=== PATIENT | female | born 1945 | race Hispanic/Latino ===

== ENCOUNTER 2021-01-20 12:10 | Emergency (ER) | payer OTHER ==
--- OUTSIDE RECORDS SUMMARY | 2021-01-20 12:13 | XMS REPORT | Continuity of Care Document ---
:1945 Author Organization [facility] t Address [address] [place] [address] Dr. Baez. [address] [place] [address] Care Team Providers Name Role Phone Myke RAMAN Attending Clinician Problems This patient has no known problems. Allergies, Adverse Reactions, Alerts This patient has no known allergies or adverse reactions. Medications This patient has no known medications. Procedures This patient has no known procedures. Encounters Start End Encounter Admission Attending Care Care Encounter Source Date/Time Date/Time Type Type Clinicians Facility Department ID 2021-01-17 2021-01-17 Telephone ROGER Stringer [id number] 00:00:00 00:00:00 [facility] [id number] Surgical [id number] [facility] [id number] [address] [place] Results This patient has no known results.
[2021-01-20 13:21] LABS: Absolute Lymphocytes (CBC) 0.8 K/uL (0.7-4.9); Basophils % 0.5 % (0-1.3); MPV 9.1 fL (7.6-11.3)
[2021-01-20 13:36] LABS: Potassium 3.9 mmol/L (3.5-5.1)
--- NOTE | 2021-01-20 14:00 | RAD REPORT ---
EXAM DESCRIPTION: RAD - Chest Single View - 01/20/2021 1:52 pm CLINICAL HISTORY: COUGH, epigastric pain and fever COMPARISON: November 2016 TECHNIQUE: AP portable chest image was obtained 01/20/2021 1:52 pm . FINDINGS: Fibrotic lung pattern is present accentuated by shallow inspiration. Parenchymal findings are not substantially different from comparison. Rotation, portable technique, supine positioning and shallow inspiration all contribute to accentuated lung parenchyma and cardiomediastinal silhouette. No measurable pleural effusion and no pneumothorax. No acute bony abnormality seen. No acute aortic f indings suspected. IMPRESSION: When adjusting for positioning and technique differences, chest is not substantially dif ferent from comparison.
--- NOTE | 2021-01-20 15:33 | EDPHYS ---
Physician Documentation [facility] Name: Suzanne Sneed Age: 75 yrs Sex: Female : 1945 Arrival Date: 01/20/2021 Time: 12:15 Bed 17 Private MD: Wander Dutta ED Physician Charly Bosch HPI: 01/20 13:02 This 75 yrs old Female presents to ER via Ambulatory with complaints of COVID+.pm1 20:15 The patient presents with abdominal pain in the epigastric area. Onset: The pm1 symptoms/episode began/occurred 10 day(s) ago. The symptoms do not radiate. Associated signs and symptoms: Pertinent positives: fever, nausea, Pertinent negatives: chest pain, diarrhea, dysuria, shortness of breath, vomiting. The symptoms are described as crampy. Modifying factors: The symptoms are alleviated by nothing, the symptoms are aggravated by nothing. Severity of pain: in the emergency department the pain has resolved. diagnosed with covid last Friday. Patient concerned that she her electrolytes are off due to her decreased appetite and change in taste of food. Patient denies shortness of breath, but is concerned because in the past rg she has had a URI she was given abx prescriptions by her PCP and they have improved her symptoms. Historical: - Allergies: 12:31 Sulfa (Sulfonamide Antibiotics); NAUSEA; hb - Immunization history:: Adult Immunizations. - Social history:: Smoking status: Patient denies any tobacco usage or history of. ROS: 20:15 Eyes: Negative for injury, pain, redness, and discharge, ENT: Negative for injury, pm1 pain, and discharge, Neck: Negative for injury, pain, and swelling. 20:15 Cardiovascular: Negative for chest pain, palpitations, and edema, Respiratory: Negative for shortness of breath, cough, wheezing, and pleuritic chest pain. 20:15 Back: Negative for injury and pain, : Negative for injury, bleeding, discharge, and swelling, MS/Extremity: Negative for injury and deformity, Skin: Negative for injury, rash, and discoloration, Neuro: Negative for headache, weakness, numbness, tingling, and seizure. 20:15 Constitutional: Positive for fatigue, fever, poor PO intake. 20:15 Abdomen/GI: Positive for abdominal pain, nausea, Negative for vomiting, diarrhea, constipation. Exam: 20:15 Constitutional: This is a well developed, well nourished patient who is awake, alert, pm1 and in no acute distress. Head/Face: Normocephalic, atraumatic. 20:15 Back: No spinal tenderness. No costovertebral tenderness. Full range of motion. Skin: Warm, dry with normal turgor. Normal color with no rashes, no lesions, and no evidence of cellulitis. MS/ Extremity: Pulses equal, no cyanosis. Neurovascular intact. Full, normal range of motion. 20:15 Cardiovascular: Exam negative for acute changes, Rate: normal, Rhythm: regular, Pulses: no pulse deficits are appreciated. 20:15 Respiratory: Exam negative for acute changes, respiratory distress, shortness of breath, Breath sounds: are clear throughout. 20:15 Abdomen/GI: Inspection: abdomen appears normal, Palpation: abdomen is soft and non-tender, in all quadrants. 20:15 Neuro: Exam negative for acute changes, Orientation: is normal, Mentation: is normal, Motor: is normal, moves all fours. Vital Signs: 12:29 BP 152 / 72; Pulse 102; Resp 20; Temp 99; Pulse Ox 95% on R/A; Weight 107.05 kg; Height hb 5 ft. 1 in. (154.94 cm); Pain 0/10; 12:58 BP 130 / 66; Pulse 86; Resp 18; Pulse Ox 96% on R/A; bw 13:34 BP 125 / 64; Pulse 81; Resp 18; Pulse Ox 96% on R/A; bw 14:56 BP 131 / 65; Pulse 73; Resp 18; Pulse Ox 95% on R/A; bw 12:29 Body Mass Index 44.59 (107.05 kg, 154.94 cm) hb MDM: 12:35 Patient medically screened. pm1 15:32 Data reviewed: vital signs. Data interpreted: Pulse oximetry: on room air is 95 %. pm1 Interpretation: normal. Counseling: I had a detailed discussion with the patient and/or guardian regarding: the historical points, exam findings, and any diagnostic results supporting the discharge/admit diagnosis, lab results, radiology results, the need for outpatient follow up, to return to the emergency department if symptoms worsen or persist or if there are any questions or concerns that arise at home. 01/20 12:42 Order name: CBC with Diff pm1 01/20 12:42 Order name: BMP pm1 01/20 12:42 Order name: IV Saline Lock; Complete Time: 13:15 pm1 01/20 12:42 Order name: Chest Single View XRAY; Complete Time: 14:16 pm1 01/20 12:43 Order name: CBC with Automated Diff; Complete Time: 14:16 EDMS 01/20 12:43 Order name: Basic Metabolic Panel; Complete Time: 14:16 EDMS Administered Medications: No medications were administered Disposition: 16:41 Co-signature as Attending Physician, Charly Bosch MD. rn Disposition: 01/20/21 15:32 Discharged to Home. Impression: Coronavirus infection, unspecified. - Condition is Stable. - Discharge Instructions: COVID-19. - Medication Reconciliation Form, Thank You Letter, Antibiotic Education, Prescription Opioid Use form. - Follow up: Emergency Department; When: As needed; Reason: Worsening of condition. Follow up: Private Physician; When: 2 - 3 days; Reason: Recheck today's complaints, Continuance of care, Re-evaluation by your physician. - Problem is new. - Symptoms have improved. Signatures: Dispatcher [employer] EDMS Charly Bosch MD MD rn Marinas, Patrick, OPAL A P SUPERVISOR pm1 Kylee Ryan RN RN hb Webb, Bethany, RN RN bw Corrections: (The following items were deleted from the chart) 16:11 15:32 01/20/2021 15:32 Discharged to Home. Impression: Coronavirus infection, bw unspecified. Condition is Stable. Forms are Medication Reconciliation Form, Thank You Letter, Antibiotic Education, Prescription Opioid Use. Follow up: Emergency Department; When: As needed; Reason: Worsening of condition. Follow up: Private Physician; When: 2 - 3 days; Reason: Recheck today's complaints, Continuance of care, Re-evaluation by your physician. Problem is new. Symptoms have improved. pm1 20:14 13:02 The patient has shortness of breath at rest, pm1 pm1 20:14 13:02 Onset: The symptoms/episode began/occurred yesterday, pm1 pm1 20:14 13:02 Duration: The symptoms are continuous, pm1 pm1 :14 13:02 The patient's shortness of breath is aggravated by light activity, is alleviated pm1 by nothing, pm1 20:14 13:02 Associated signs and symptoms: Pertinent positives: productive cough, fever, pm1 fatigue, nausea, epigastric paim, Pertinent negatives: chest pain, vomiting, diarrhea, pm1 20:14 13:02 Severity of symptoms: in the emergency department the symptoms shortness of pm1 breath worse, Pain is currently a 0 / 10 pm1 20:14 13:02 The patient has not experienced similar symptoms in the past, pm1 pm1 20:14 13:02 diagnosis of covid yesterday, pm1 pm1 20:14 13:02 Constitutional: Positive for body aches, fever, Negative for poor PO intake, pm1 pm1 20:14 13:02 Eyes: Negative for injury, pain, redness, and discharge, ENT: Negative for pm1 injury, pain, and discharge, Neck: Negative for injury, pain, and swelling, Cardiovascular: Negative for chest pain, palpitations, and edema, pm1 20:14 13:02 Abdomen/GI: Positive for abdominal pain, nausea, Negative for vomiting, diarrhea, pm1 constipation, pm1 20:14 13:02 Back: Negative for injury and pain, : Negative for injury, bleeding, discharge, pm1 and swelling, MS/Extremity: Negative for injury and deformity, Skin: Negative for injury, rash, and discoloration, pm1 20:14 13:02 Respiratory: Positive for cough, shortness of breath, pm1 pm1 20:14 13:02 Neuro: Negative for headache, weakness, numbness, tingling, and seizure, pm1 pm1 20:14 13:02 Constitutional: This is a well developed, well nourished patient who is awake, pm1 alert, and in no acute distress. Head/Face: Normocephalic, atraumatic. pm1 20:14 13:02 Cardiovascular: Exam negative for acute changes, Rate: normal, Rhythm: regular, pm1 Pulses: no pulse deficits are appreciated, Edema: is not appreciated, pm1 20:14 13:02 Respiratory: the patient does not display signs of respiratory distress, Breath pm1 sounds: are clear throughout, pm1 20:14 13:02 Abdomen/GI: Inspection: abdomen appears normal, Palpation: abdomen is soft and pm1 non-tender, in all quadrants, pm1 20:14 13:02 Skin: Warm, dry with normal turgor. Normal color with no rashes, no lesions, and pm1 no evidence of cellulitis. MS/ Extremity: Pulses equal, no cyanosis. Neurovascular intact. Full, normal range of motion. Neuro: Awake and alert, GCS 15, oriented to person, place, time, and situation. Cranial nerves II-XII grossly intact. Motor strength 5/5 in all extremities. Sensory grossly intact. Cerebellar exam normal. Normal gait. pm1
--- NOTE | 2021-01-20 15:33 | ER ---
Nurse's Notes [facility] [place] Name: Suzanne Sneed Age: 75 yrs Sex: Female : 1945 Arrival Date: 01/20/2021 Time: 12:15 Bed 17 Private MD: Wander Dutta Diagnosis: Coronavirus infection, unspecified Presentation: 01/20 12:29 Chief complaint: Intermittent epigastric pain and fever x 10 days, SOB, fatigue, and hb nausea x 1 week. Tested COVID + last Friday at [facility]. Coronavirus screen: Client presents with at least one sign or symptom that may indicate coronavirus-19. Standard/surgical mask placed on the client. Provider contacted for isolation considerations. Client reports previous positive COVID test result. Date of collection: January 12, 2021. Ebola Screen: No symptoms or risks identified at this time. Initial Sepsis Screen: Does the patient meet any 2 criteria? HR > 90 bpm. No. Patient's initial sepsis screen is negative. Does the patient have a suspected source of infection?. Risk Assessment: Do you want to hurt yourself or someone else? Patient reports no desire to harm self or others. Onset of symptoms was January 10, 2021. 12:29 Method Of Arrival: Ambulatory hb 12:29 Acuity: DREAD 3 hb Triage Assessment: 15:56 General: Appears in no apparent distress. Behavior is calm, cooperative, appropriate bw for age. Historical: - Allergies: 12:31 Sulfa (Sulfonamide Antibiotics); NAUSEA; hb - Immunization history:: Adult Immunizations. - Social history:: Smoking status: Patient denies any tobacco usage or history of. Screenin:58 Abuse screen: Denies threats or abuse. Nutritional screening: No deficits noted. bw Tuberculosis screening: No symptoms or risk factors identified. Fall Risk None identified. Assessment: 12:58 Pain: Complains of pain in on inspiration. Neuro: No deficits noted. Cardiovascular: No bw deficits noted. Respiratory: No deficits noted. Respiratory: Reports shortness of breath cough that is. GI: No deficits noted. : No deficits noted. EENT: No deficits noted. Derm: No deficits noted. 13:34 Reassessment: Patient appears in no apparent distress at this time. Patient and/or bw family updated on plan of care and expected duration. Pain level reassessed. Patient is alert, oriented x 3, equal unlabored respirations, skin warm/dry/pink. 14:56 Reassessment: Patient appears in no apparent distress at this time. Patient and/or bw family updated on plan of care and expected duration. Pain level reassessed. Patient is alert, oriented x 3, equal unlabored respirations, skin warm/dry/pink. 15:55 Reassessment: Patient appears in no apparent distress at this time. Patient and/or bw family updated on plan of care and expected duration. Pain level reassessed. Patient is alert, oriented x 3, equal unlabored respirations, skin warm/dry/pink. Vital Signs: 12:29 BP 152 / 72; Pulse 102; Resp 20; Temp 99; Pulse Ox 95% on R/A; Weight 107.05 kg; Height hb 5 ft. 1 in. (154.94 cm); Pain 0/10; 12:58 BP 130 / 66; Pulse 86; Resp 18; Pulse Ox 96% on R/A; bw 13:34 BP 125 / 64; Pulse 81; Resp 18; Pulse Ox 96% on R/A; bw 14:56 BP 131 / 65; Pulse 73; Resp 18; Pulse Ox 95% on R/A; bw 12:29 Body Mass Index 44.59 (107.05 kg, 154.94 cm) hb ED Course: 12:15 Patient arrived in ED. mr 12:15 Wander Dutta MD is Private Physician. mr 12:31 Triage completed. hb 12:31 Arm band placed on Patient placed in an exam room, on a stretcher. ll1 12:32 Shadi Reid NP is PHCP. pm1 12:32 Charly Bosch MD is Attending Physician. pm1 12:57 Radha Ponce, BRIAN is Primary Nurse. bw 12:58 Patient has correct armband on for positive identification. Bed in low position. Call bw light in reach. Side rails up X 1. Pulse ox on. NIBP on. Warm blanket given. 12:58 No provider procedures requiring assistance completed. bw 13:15 BMP Sent. bw 13:15 CBC with Diff Sent. bw 13:15 Inserted saline lock: 20 gauge in right antecubital area, using aseptic technique. bw Blood collected. 13:52 Chest Single View XRAY In Process Unspecified. EDMS 14:56 IV discontinued. Administered Medications: No medications were administered Outcome: 15:32 Discharge ordered by . pm1 15:55 Discharged to home ambulatory. 15:55 Condition: stable 15:55 Discharge instructions given to patient. 16:11 Patient left the ED. Signatures: Dispatcher [employer] EDKS Elda Lerma Shadi, PIPELINE SUPERINTENDENT DIVISION PIPELINE SUPERINTENDENT DIVISION pm1 Kylee Ryan RN RN Radha Draper RN RN 1 Radha Ponce RN RN
[2021-01-20 20:25] VITALS: TEMP 99
[2021-01-20 20:29] VITALS: BP 131/65; O2SAT 95
== END 2021-01-20 16:11 | disposition home or self-care (01) ==
LOC: ER 12:10
DX: U07.1 COVID-19 (principal)
CPT/HCPCS: 36415; 71045; 80048; 85025; 99284

== ENCOUNTER 2022-02-24 15:04 | Emergency (ER) | payer OTHER ==
--- OUTSIDE RECORDS SUMMARY | 2022-02-24 15:06 | XMS REPORT | Continuity of Care Document ---
:1945 Author Organization [facility] t Address [address] [place] [address] Care Team Providers Name Role Phone Lab, Av Pob I Attending Clinician Unavailable Anene WEIGHT ANALYST Attending Clinician ANENE Attending Clinician Unavailable Payers Payer Name Policy Type Policy Number Effective Date Expiration Date S ource Problems This patient has no known problems. Allergies, Adverse Reactions, Alerts Allergy Allergy Status Severity Reaction(s) Onset Inactive Treating Comm ents Source Name Type Date Date Clinician Sulfa Propensi Active Nausea [facility] (Sulfona ty to and/or 8-23 ity of mide adverse Vomiting 00:00: [place] Antibiot reaction 00 Medica l ics) s Branch SULFA Drug Active High N/V 0 [facility] (SULFONA Class 8-23 ity of MIDE 00:00: [place] ANTIBIOT 00 Medical ICS) Branch Social History Social Habit Start Date Stop Date Quantity Comments Source Exposure to Yes [facility] SARS-CoV-2 (event) Medica l Branch Sex Ass[birth year] [facility] 00:00:00 00:00:00 Medical Branch Smoking Status Start Date Stop Date Source Unknown if ever smoked [facility] Medical Branch Medications Ordered Filled Start Stop Current Ordering Indication Dosage Frequency Signature Comments Components Source Medication Medication Date Date Medication? Clinician (SIG) Name Name amlodipine- Yes 1{capsu Take 1 U nivers benazepril 8-10 le} capsule by ity of (LOTREL) 21:08: mouth [place] 10-20 mg 36 daily. Medical per capsule Branch amlodipine- Yes 1{capsu Take 1 U nivers benazepril 8-10 le} capsule by ity of (LOTREL) 21:08: mouth [place] 10-20 mg 36 daily. Medical per capsule Branch amlodipine- Yes 1{capsu Take 1 U nivers benazepril 8-10 le} capsule by ity of (LOTREL) 21:08: mouth [place] 10-20 mg 36 daily. Medical per capsule Branch amlodipine- Yes 1{capsu Take 1 U nivers benazepril 8-10 le} capsule by ity of (LOTREL) 21:08: mouth [place] 10-20 mg 36 daily. Medical per capsule Branch amlodipine- Yes 1{capsu Take 1 U nivers benazepril 8-10 le} capsule by ity of (LOTREL) 21:08: mouth [place] 10-20 mg 36 daily. Medical per capsule Branch amlodipine- Yes 1{capsu Take 1 U nivers benazepril 8-10 le} capsule by ity of (LOTREL) 21:08: mouth [place] 10-20 mg 36 daily. Medical per capsule Branch amlodipine- Yes 1{capsu Take 1 U nivers benazepril 8-10 le} capsule by ity of (LOTREL) 21:08: mouth [place] 10-20 mg 36 daily. Medical per capsule Branch amlodipine- Yes 1{capsu Take 1 U nivers benazepril 8-10 le} capsule by ity of (LOTREL) 21:08: mouth [place] 10-20 mg 36 daily. Medical per capsule Branch amlodipine- Yes 1{capsu Take 1 U nivers benazepril 8-10 le} capsule by ity of (LOTREL) 21:08: mouth [place] 10-20 mg 36 daily. Medical per capsule Branch amlodipine- Yes 1{capsu Take 1 U nivers benazepril 8-10 le} capsule by ity of (LOTREL) 21:08: mouth [place] 10-20 mg 36 daily. Medical per capsule Branch cloniDINE Yes .1mg Take 0.1 Univ ers 0.1 mg 7-21 mg by ity of tablet 00:00: mouth [place] 00 daily. Medical Branch ALPRAZolam Yes 1mg Take 1 mg Un car[place] 2 mg tablet 7-21 by mouth ity of 00:00: at [place] bedtime. Medical Branch cloniDINE 2017-0 Yes .1mg Take 0.1 Univ ers 0.1 mg 7-21 mg by ity of tablet 00:00: mouth daily. Medical Branch ALPRAZolam 2017-0 Yes 1mg Take 1 mg Un car[place] 2 mg tablet 7-21 by mouth ity of 00:00: at [place] bedtime. Medical Branch cloniDINE 2017-0 Yes .1mg Take 0.1 Univ ers 0.1 mg 7-21 mg by ity of tablet 00:00: mouth daily. Medical Branch ALPRAZolam 2017-0 Yes 1mg Take 1 mg Un car[place] 2 mg tablet 7-21 by mouth ity of 00:00: at [place] bedtime. Medical Branch cloniDINE 2017-0 Yes .1mg Take 0.1 Univ ers 0.1 mg 7-21 mg by ity of tablet 00:00: mouth daily. Medical Branch ALPRAZolam 2017-0 Yes 1mg Take 1 mg Un [place] 2 mg tablet 7-21 by mouth ity of 00:00: at [place] bedtime. Medical Branch cloniDINE 2017-0 Yes .1mg Take 0.1 Univ ers 0.1 mg 7-21 mg by ity of tablet 00:00: mouth daily. Medical Branch ALPRAZolam 2016-0 Yes 1mg Take 1 mg Un [place] 2 mg tablet 7-21 by mouth ity of 00:00: at [place] bedtime. Medical Branch cloniDINE 2017-0 Yes .1mg Take 0.1 Univ ers 0.1 mg 7-21 mg by ity of tablet 00:00: mouth daily. Medical Branch ALPRAZolam 2017-0 Yes 1mg Take 1 mg Un [place] 2 mg tablet 7-21 by mouth ity of 00:00: at [place] bedtime. Medical Branch cloniDINE 2017-0 Yes .1mg Take 0.1 Univ ers 0.1 mg 7-21 mg by ity of tablet 00:00: mouth daily. Medical Branch ALPRAZolam 2017-0 Yes 1mg Take 1 mg Un [place] 2 mg tablet 7-21 by mouth ity of 00:00: at [place] bedtime. Medical Branch cloniDINE 2017-0 Yes .1mg Take 0.1 Univ ers 0.1 mg 7-21 mg by ity of tablet 00:00: mouth [place] 00 daily. [facility] Branch ALPRAZolam Yes 1mg Take 1 mg Un carl[place] 2 mg tablet 7-21 by mouth ity of 00:00: at [place] [address] bedtime. Medical Branch cloniDINE Yes .1mg Take 0.1 Univ ers 0.1 mg 7-21 mg by ity of tablet 00:00: mouth [place] 00 daily. [facility] Branch ALPRAZolam Yes 1mg Take 1 mg Un car[place] 2 mg tablet 7-21 by mouth ity of 00:00: at [place] 00 bedtime. [facility] Branch cloniDINE Yes .1mg Take 0.1 Univ ers 0.1 mg 7-21 mg by ity of tablet 00:00: mouth [place] 00 daily. [facility] Branch ALPRAZolam Yes 1mg Take 1 mg Un car[place] 2 mg tablet 7-21 by mouth ity of 00:00: at [place] [address] bedtime. Medical Branch Procedures This patient has no known procedures. Encounters Start End Encounter Admission Attending Care Care Encounter Source Date/Time Date/Time Type Type Clinicians Facility Department ID 2021-02-12 2021-02-12 Laboratory Lab, Adc Fam Pob I [facility] [id number]. [id number] Univers 10:58:06 11:18:06 Only Suzanne Stringerthia [employer] [id number] ity of [place] [id number] Renzo as Professio [phone] [address] Office [address] One 2021-02-12 2021-02-12 Outpatient R [facility] [id number] Univers 11:00:00 11:00:00 [id number] ity [facility] 2021-02-12 2021-02-12 [facility] [id number] Univers 11:00:00 11:00:00 CHIDI ity [facility] 2021-02-01 2021-02-01 Telephone Chica [facility] [id number] Univers 00:00:00 00:00:00 [employer] [id number] it y of [place] [id number] Renzo as Professio [phone] Ca dical nal 044 [facility] One 2021-01-30 2021-01-30 Laboratory Lab, [facility] Fam Pob I [facility] 1.2. [id number] [id number] Univers 09:57:45 10:17:45 Only Suzanne Stringerthia Health [id number] ity of [place] [id number] Renzo as Professio [id number] [address] One 2021-01-30 2021-01-30 Outpatient R [facility] [id number] Univers 10:00:00 10:00:00 [id number] ity [facility] 2021-01-30 2021-01-30 Outpatient R [facility] [id number] Univers 10:00:00 10:00:00 CHIDI ity [facility] 2021-01-17 2021-01-17 [facility] [id number] 00:00:00 00:00:00 Ch[facility] [id number] Surgical [id number] Specialti [id number] [address] 2021-01-17 2021-01-17 [facility] [id number] Univers 00:00:00 00:00:00 Chidi [facility] [id number] it y of Surgical [id number] Renzo as Specialti [id number] [facility] [address] [facility] 2021-01-15 2021-01-15 [facility] [id number] Univers 00:00:00 00:00:00 Chidi [facility] [id number] it y of [place] [id number] Renzo as Professio [phone] Ca dicct nal [address] [place] [address] One 2021-01-13 2021-01-13 Telephone Lab, [facility] [id number] Univers 00:00:00 00:00:00 Fam Pob I Health [id number] ity of [place] [id number] Renzo as Professio [phone] Ca dical nal [address] [place] [address] One 2021-01-12 2021-01-12 Laboratory Lab, Adc Fam Pob I [facility] 1.2. 840.114 [id number] Univers 11:13:13 11:33:13 Only Chidi Strigner [facility] [id number] ity of [place] [id number] Renzo as Professio [phone] Ca dicct nal [address] [place] [address] One 2021-01-12 2021-01-12 Outpatient R [facility] [id number] Univers 11:20:00 11:20:00 [id number] [facility] 2021-01-12 2021-01-12 Outpatient R CHICA [facility] [id number] Univers 11:20:00 11:20:00 [facility] Results This patient has no known results.
[2022-02-24] MEDS ORDERED: METOCLOPRAMIDE 10 MG/2mL INJ ONE (16:23)
[2022-02-24] MEDS ORDERED: ACETAMINOPHEN 325 MG TABLET ONE (16:23)
[2022-02-24] MEDS ORDERED: NA CHLORIDE 0.9% 500 ML ONE (16:24)
--- NOTE | 2022-02-24 16:39 | RAD REPORT ---
EXAM DESCRIPTION: CT - Head Brain Wo Cont - 02/24/2022 4:27 pm CLINICAL HISTORY: Dizziness COMPARISON: 2017 TECHNIQUE: Computed axial tomography of the head was obtained. IV contrast was not requested. All CT scans are performed using dose optimization technique as appropriate and may include automated exposure control or mA/KV adjustment according to patient size. FINDINGS: An intracranial bleed is not seen . The ventricles are normal in caliber. No extra-axial fluid collection is noted. Mild low-density areas within periventricular, deep and subcortical white matter likely represent isc hemic changes secondary to small vessel disease. Vascular calcifications Fluid within the sinuses/ mastoids is not seen. IMPRESSION: No acute intracranial abnormality is seen. If patient's symptoms persist MRI of the bra in would be recommended.
[2022-02-24 17:12] LABS: Urine Blood Negative (Negative); Urine Glucose Negative (Negative); Urine Protein Negative (Negative)
--- NOTE | 2022-02-24 17:17 | RAD REPORT ---
EXAM DESCRIPTION: Hammad Single View02/24/2022 4:43 pm CLINICAL HISTORY: Congestion COMPARISON: 2020 FINDINGS: Upper lobe vessels are prominent indicative of pulmonary venous hypertension. The lungs appear clear of acute infiltrate. The heart is mildly enlarged
[2022-02-24 17:29] LABS: Absolute Lymphocytes (CBC) 1.5 K/uL (0.7-4.9); Hematocrit 39.9 % (36.0-45.0); Lymphocytes % 15.3 % (15.3-44.8); MPV 9.6 fL (7.6-11.3); RBC Red Blood Cell Count 4.79 M/uL (3.86-4.86)
[2022-02-24 17:53] LABS: ALT/SGPT 20 U/L (12-78); AST/SGOT 12 U/L (15-37); Albumin 3.9 g/dL (3.4-5.0); Alkaline Phosphatase 106 U/L (45-117); BUN Blood Urea Nitrogen 18 mg/dL (7-18); Bicarbonate 24 mmol/L (21-32); Bilirubin Total 0.4 mg/dL (0.2-1.0); Glucose Level 115 mg/dL (74-106); NT PRO-BNP 133 pg/mL (<450); Potassium 3.9 mmol/L (3.5-5.1); Protein, Total 8.1 g/dL (6.4-8.2); Sodium Level 137 mmol/L (136-145); Troponin High Sensitivity 10.3 pg/mL (<58.9)
[2022-02-24 17:54] LABS: Bilirubin Direct < 0.1 mg/dL (0-0.2)
--- NOTE | 2022-02-24 18:24 | EDPHYS ---
Physician Documentation [facility] Name: Suzanne Sneed Age: 76 yrs Sex: Female : 1945 Arrival Date: 02/24/2022 Time: 15:05 Bed 20 Private MD: Wander Dutta ED Physician Cheryl Pérez HPI: 02/24 16:03 This 76 yrs old Female presents to ER via Wheelchair with complaints of ma2 Doesn't Feel Right, Dizziness, High Blood Pressure. 16:03 26-year-old female, history of vertigo dizziness presents with high blood pressure, she ma2 said she has generalized body ache she does not feel right she is having high blood pressure over the last 2 days patient also states she has vertigo which she always has when she is try to walk any medication for that especially meclizine and was told this is from the left inner ear she has been having this vertigo for the last 37 years since she was 30 years ago, today's vertigo is unchanged from her baseline vertigo however she said that she feels like she may have a UTI or electrolyte disturbance as she has been feeling weak and tired.. Historical: - Allergies: 15:44 Sulfa (Sulfonamide Antibiotics); NAUSEA; jb4 - Home Meds: 15:44 clonidine HCl 0.1 mg Oral tab [Active]; Xanax 0.25 mg Oral tab [Active]; Lotrel 5-20 mg jb4 Oral cap [Active]; - PMHx: 15:44 Anxiety; Hypertension; Panic Attacks; Vertigo; jb4 - Immunization history:: Adult Immunizations not up to date. - Social history:: Smoking status: Patient denies any tobacco usage or history of. - Family history:: not pertinent. ROS: 16:03 Constitutional: Negative for fever, chills, and weight loss. ma2 16:03 All other systems are negative. Exam: 16:03 Constitutional: This is a well developed, well nourished patient who is awake, alert, ma2 and in no acute distress. Head/Face: Normocephalic, atraumatic. Eyes: Pupils equal round and reactive to light, extra-ocular motions intact. Lids and lashes normal. Conjunctiva and sclera are non-icteric and not injected. Cornea within normal limits. Periorbital areas with no swelling, redness, or edema. ENT: Nares patent. No nasal discharge, no septal abnormalities noted. Tympanic membranes are normal and external auditory canals are clear. Oropharynx with no redness, swelling, or masses, exudates, or evidence of obstruction, uvula midline. Mucous membranes moist. Neck: Trachea midline, no thyromegaly or masses palpated, and no cervical lymphadenopathy. Supple, full range of motion without nuchal rigidity, or vertebral point tenderness. No Meningismus. Chest/axilla: Normal chest wall appearance and motion. Nontender with no deformity. No lesions are appreciated. Cardiovascular: Regular rate and rhythm with a normal S1 and S2. No gallops, murmurs, or rubs. Normal PMI, no JVD. No pulse deficits. Respiratory: Lungs have equal breath sounds bilaterally, clear to auscultation and percussion. No rales, rhonchi or wheezes noted. No increased work of breathing, no retractions or nasal flaring. Abdomen/GI: Soft, non-tender, with normal bowel sounds. No distension or tympany. No guarding or rebound. No evidence of tenderness throughout. Skin: Warm, dry with normal turgor. Normal color with no rashes, no lesions, and no evidence of cellulitis. MS/ Extremity: Pulses equal, no cyanosis. Neurovascular intact. Full, normal range of motion. Neuro: Awake and alert, GCS 15, oriented to person, place, time, and situation. Cranial nerves II-XII grossly intact. Motor strength 5/5 in all extremities. Sensory grossly intact. Cerebellar exam normal. Normal gait. Vital Signs: 15:41 BP 166 / 67; Pulse 76; Resp 16; Temp 97.7(O); Pulse Ox 99% on R/A; Weight 107.05 kg jb4 (R); Height 5 ft. 1 in. (154.94 cm) (R); Pain 0/10; 16:50 BP 146 / 56; Pulse 63; Resp 16; Pulse Ox 99% ; bp 18:58 BP 130 / 54; Pulse 68; Resp 17; Pulse Ox 97% ; bp 19:00 BP 121 / 63; Pulse 66; Resp 16 S; Pulse Ox 98% on R/A; Pain 0/10; ag7 15:41 Body Mass Index 44.59 (107.05 kg, 154.94 cm) jb4 MDM: 16:03 Differential diagnosis: generalized weakness, idiopathic dizziness, near-syncope, ma2 vertigo. 18:22 Data reviewed: vital signs, nurses notes. Counseling: I had a detailed discussion with alessandra the patient and/or guardian regarding: the historical points, exam findings, and any diagnostic results supporting the discharge/admit diagnosis, the presence of at least one elevated blood pressure reading (>120/80) during this emergency department visit, the need for outpatient follow up. Response to treatment: the patient's symptoms have markedly improved after treatment. 18:23 Patient medically screened. [facility] 02/24 15:46 Order name: Basic Metabolic Panel; Complete Time: 18:22 [facility] 02/24 15:46 Order name: CBC with Diff; Complete Time: 18:22 [facility] 02/24 15:46 Order name: LFT's; Complete Time: 18:22 [facility] 02/24 15:46 Order name: Magnesium; Complete Time: 18:22 [facility] 02/24 15:46 Order name: NT PRO-BNP; Complete Time: 18:22 [facility] 02/24 15:46 Order name: PT-INR; Complete Time: 18:22 [facility] 02/24 15:46 Order name: Troponin HS; Complete Time: 18:22 [facility] 02/24 15:46 Order name: XRAY Chest (1 view); Complete Time: 17:29 dc02/24 15:46 Order name: SARS-COV-2 RT PCR (Document "Date of Onset" if Symptomatic); Complete Time: [facility] 18:56 02/24 16:03 Order name: CT Head Brain wo Cont; Complete Time: 17:11 dc02/24 17:12 Order name: Urine Dipstick-Ancillary; Complete Time: 17:29 EDMS 02/24 15:46 Order name: EKG; Complete Time: 15:47 02/24 15:46 Order name: Cardiac monitoring; Complete Time: 16:17 dc02/24 15:46 Order name: EKG - Nurse/Tech; Complete Time: 16:17 dc02/24 15:46 Order name: IV Saline Lock; Complete Time: 17:13 dc02/24 15:46 Order name: Labs collected and sent; Complete Time: 17:13 ma02/24 15:46 Order name: O2 Per Protocol; Complete Time: 16:22 [facility] 02/24 15:46 Order name: O2 Sat Monitoring; Complete Time: 16: [facility] 02/24 15:46 Order name: Urine Dipstick-Ancillary (obtain specimen); Complete Time: 17:13 ma2 Administered Medications: 16:30 Drug: Tylenol 650 mg Route: PO; bp 18:54 Follow up: Response: No adverse reaction bp 16:50 Drug: NS 0.9% 500 ml Route: IV; Rate: 125 ml/min; Site: right antecubital; bp 18:59 Follow up: IV Status: Completed infusion; IV Intake: 500ml bp 19:39 Follow up: IV Status: Completed infusion; IV Intake: 500ml ag7 16:50 Drug: Reglan (metoCLOPramide) 20 mg Route: IVP; Site: right antecubital; bp 18:54 Follow up: Response: No adverse reaction bp Disposition Summary: 02/24/22 18:23 Discharge Ordered Location: Home ma2 Condition: Stable ma2 Diagnosis - Dizziness and giddiness ma2 Followup: ma2 - With: Private Physician - When: Tomorrow - Reason: If symptoms return, Continuance of care Discharge Instructions: - Discharge Summary Sheet ma2 - Dizziness ma2 Forms: - Medication Reconciliation Form ma2 - Thank You Letter ma2 - Antibiotic Education ma2 - Prescription Opioid Use ma2 Prescriptions: - Reglan 10 mg Oral Tablet - take 1 tablet by ORAL route every 6 hours . take 30 minutes before meals and at ma2 bedtime; 100 tablet; Refills: 0, Product Selection Permitted - Diclofenac Sodium 75 mg Oral Tablet Sustained Release - take 1 tablet by ORAL route 2 times per day; 30 tablet; Refills: 0, Product ma2 Selection Permitted Signatures: Dispatcher [employer] Saturnino Estrella RN RN jb4 Benjamin Damian RN RN Cheryl Sawyer MD MD ma2 Nida Whipple RN ag7
--- NOTE | 2022-02-24 18:24 | ER ---
Nurse's Notes [facility] Name: Suzanne Sneed Age: 76 yrs Sex: Female : 1945 Arrival Date: 02/24/2022 Time: 15:05 Bed 20 Private MD: Wander Dutta Diagnosis: Dizziness and giddiness Presentation: 02/24 15:41 Chief complaint: Patient states: I was feeling bad this morning with vertigo. I noticed jb4 my blood pressure was going up so I took clonidine. I still feel very dizzy. I tried to urinate and was having trouble. I think I may have a UTI. Coronavirus screen: At this time, the client does not indicate any symptoms associated with coronavirus-19. Ebola Screen: No symptoms or risks identified at this time. Initial Sepsis Screen: Does the patient meet any 2 criteria? No. Patient's initial sepsis screen is negative. Does the patient have a suspected source of infection? No. Patient's initial sepsis screen is negative. Risk Assessment: Do you want to hurt yourself or someone else? Patient reports no desire to harm self or others. Onset of symptoms was February 24, 2022. Transition of care: patient was not received from another setting of care. 15:41 Method Of Arrival: Wheelchair jb4 15:41 Acuity: DREAD 3 jb4 Triage Assessment: 15:45 General: Appears in no apparent distress. comfortable, Behavior is calm, cooperative, bp appropriate for age. Pain: Complains of pain in head. EENT: No deficits noted. Neuro: Reports dizziness. Cardiovascular: No deficits noted. Respiratory: No deficits noted. GI: No signs and/or symptoms were reported involving the gastrointestinal system. : No signs and/or symptoms were reported regarding the genitourinary system. Derm: No deficits noted. Musculoskeletal: No deficits noted. Historical: - Allergies: 15:44 Sulfa (Sulfonamide Antibiotics); NAUSEA; jb4 - Home Meds: 15:44 clonidine HCl 0.1 mg Oral tab [Active]; Xanax 0.25 mg Oral tab [Active]; Lotrel 5-20 mg jb4 Oral cap [Active]; - PMHx: 15:44 Anxiety; Hypertension; Panic Attacks; Vertigo; jb4 - Immunization history:: Adult Immunizations not up to date. - Social history:: Smoking status: Patient denies any tobacco usage or history of. - Family history:: not pertinent. Screenin:45 Abuse screen: Denies threats or abuse. Denies injuries from another. Nutritional bp screening: No deficits noted. Tuberculosis screening: No symptoms or risk factors identified. Fall Risk None identified. Assessment: 15:45 General: SEE TRIAGE NOTE. bp 16:50 Reassessment: No changes from previously documented assessment. Patient and/or family bp updated on plan of care and expected duration. Pain level reassessed. PT RETURNED FROM CT. 18:58 Reassessment: PT TBDC AFTER IVF, AMBULATORY WITH FAMILY. DX WITH DIZZINESS. bp 19:19 Reassessment: No changes from previously documented assessment. Patient and/or family ag7 updated on plan of care and expected duration. Pain level reassessed. Patient is alert, oriented x 3, equal unlabored respirations, skin warm/dry/pink. Patient denies pain at this time. Vital Signs: 15:41 BP 166 / 67; Pulse 76; Resp 16; Temp 97.7(O); Pulse Ox 99% on R/A; Weight 107.05 kg jb4 (R); Height 5 ft. 1 in. (154.94 cm) (R); Pain 0/10; 16:50 BP 146 / 56; Pulse 63; Resp 16; Pulse Ox 99% ; bp 18:58 BP 130 / 54; Pulse 68; Resp 17; Pulse Ox 97% ; bp 19:00 BP 121 / 63; Pulse 66; Resp 16 S; Pulse Ox 98% on R/A; Pain 0/10; ag7 15:41 Body Mass Index 44.59 (107.05 kg, 154.94 cm) jb4 ED Course: 15:05 Patient arrived in ED. am2 15:05 Wander Dutta MD is Private Physician. am2 15:44 Triage completed. jb4 15:44 Arm band placed on right wrist. jb4 15:45 Cheryl Pérez MD is Attending Physician. ma2 15:45 Patient has correct armband on for positive identification. Bed in low position. Call bp light in reach. Side rails up X2. Adult w/ patient. 15:47 Benjamin Damian, RN is Primary Nurse. bp 16:08 EKG done, by ED staff, reviewed by Cheryl Pérez MD. dh3 16:22 CT Head Brain wo Cont Sent. bp 16:28 CT Head Brain wo Cont In Process Unspecified. EDMS 16:45 XRAY Chest (1 view) In Process Unspecified. EDMS 16:50 Inserted saline lock: 20 gauge in right antecubital area, using aseptic technique. bp Blood collected. 18:58 No provider procedures requiring assistance completed. IV discontinued, intact, bp bleeding controlled, No redness/swelling at site. Pressure dressing applied. Administered Medications: 16:30 Drug: Tylenol 650 mg Route: PO; bp 18:54 Follow up: Response: No adverse reaction bp 16:50 Drug: NS 0.9% 500 ml Route: IV; Rate: 125 ml/min; Site: right antecubital; bp 18:59 Follow up: IV Status: Completed infusion; IV Intake: 500ml bp 19:39 Follow up: IV Status: Completed infusion; IV Intake: 500ml ag7 16:50 Drug: Reglan (metoCLOPramide) 20 mg Route: IVP; Site: right antecubital; bp 18:54 Follow up: Response: No adverse reaction bp Medication: 15:45 VIS not applicable for this client. bp Intake: 18:59 IV: 500ml; Total: 500ml. bp 19:39 IV: 500ml; Total: 1000ml. ag7 Outcome: 18:23 Discharge ordered by . alessandra 18:58 Discharged to home ambulatory, with family. bp 18:58 Condition: stable 18:58 Discharge instructions given to patient, family, Instructed on discharge instructions, follow up and referral plans. medication usage, Demonstrated understanding of instructions, follow-up care, medications, Prescriptions given X 2. 19:39 Patient left the ED. ag7 Signatures: Dispatcher [employer] EDMS Saturnino Beck, RN RN jbChantel Couch Deanna 3 Benjamin Damian RN RN bp Alzahri, Mohammad, MD MD ma2 Glenn, Angela, RN RN ag7
[2022-02-24 19:57] VITALS: TEMP 97.7
[2022-02-24 20:02] VITALS: BP 121/63; O2SAT 98
--- NOTE | 2022-02-25 10:05 | EKG ---
Test Date: 2022-02-24 Test Time: 16:06:53 R Programmer: ARTHUR MEASUREMENT RESULTS: Intervals: Rate: 62 LA: 134 QRSD: 70 QT: 408 QTc: 414 [place]: P: 67 LA: 134 QRS: 62 T: 58 INTERPRETIVE STATEMENTS: Normal sinus rhythm Normal ECG Compared to ECG 11/25/2016 17:33:15 No significant changes Electronically Signed On 02-25-22 10:02:38 CDT by Kel Harrington
== END 2022-02-24 19:39 | disposition home or self-care (01) ==
LOC: ER 15:04
DX: R42 Dizziness and giddiness (principal); I10 Essential (primary) hypertension; F41.9 Anxiety disorder, unspecified; Z88.2 Allergy status to sulfonamides; Z20.822 Contact with and (suspected) exposure to COVID-19
CPT/HCPCS: 96361; 93005; 85025; 80048; 36415; 83735; 85610; 80076; 81003; 84484; 83880; 70450; 71045; 96374; 99284; U0003; J2765; J7040

== ENCOUNTER 2024-10-10 12:58 | Emergency (ER) | payer OTHER ==
--- OUTSIDE RECORDS SUMMARY | 2024-10-10 13:02 | XMS REPORT | Continuity of Care Document ---
Author Name Unknown Address [address] [place] [address] [facility] thconnect Address [address] [place] [address] Care Team Providers Care Kennel Hand Name Role Phone Lab, Adc Fam Pob I Attending Clinician UnavailChidi Bhatti Attending Clinician [phone] CHIDI COTO Attending Clinician Unavailable Payers Payer Name Policy Type Policy Number Effective Date Expirati on Date Source Allergies, Adverse Reactions, Alerts Allergy Name Allergy Type Status Severity Reaction(s) Onset Date Inactive Date Treating Clinician Comments Source Sulfa (Sulfona mide Antibiot ics) Propensi ty to adverse reaction s Active Nausea and/or Vomiting 06-04 00:00: 00 [facility] SULFA (SULFONA MIDE ANTIBIOT ICS) Drug Class Active High N/V 06-04 00:00: 00 [facility] Social History Social Habit Start Date Stop Date Quantity Comments Source Exposure to SARS-CoV-2 (event) Yes [facility] Sex Assigned At 1945 00:00:00 1945 00:00:00 [facility] Smoking Status Start Date Stop Date Source Unknown if ever smoked [facility] Medications Ordered Medication Name Filled Medication Name Start Date Stop Date Current Medication? Ordering Clinician Indication Dosage Frequency Signature (SIG) Comments Components Source amlodipine- benazepril (LOTREL) 10-20 mg per capsule 05-22 21:08: 36 Yes 1{capsu le} Take 1 capsule by mouth daily. [facility] cloniDINE 0.1 mg tablet 05-02 00:00: 00 Yes .1mg Take 0.1 mg by mouth daily. [facility] ALPRAZolam 2 mg tablet 05-02 00:00: 00 Yes 1mg Take 1 mg by mouth at bedtime. [facility] Encounters Start Date/Time End Date/Time Encounter Type Admission Type Attending [facility] Care Facility Care Department Encounter ID Source 2021-02-12 10:58:06 2021-02-12 11:18:06 Laboratory Only Lab, [facility] [id number] [facility] 2021-02-12 11:00:00 2021-02-12 11:00:00 [id number] 2021-02-01 00:00:00 2021-02-01 00:00:00 Telephone Myke [facility] [address] [id number] [facility] 2021-01-30 09:57:45 2021-01-30 10:17:45 [facility] ..[id number] [facility] 2021-01-30 10:00:00 2021-01-30 10:00:00 [facility] [id number] 2021-01-17 00:00:00 2021-01-17 00:00:00 Telephone Myke [facility] [id number] 2021-01-17 00:00:00 2021-01-17 00:00:00 Telephone Chidi Coto [facility] katia Gray [id number] [facility] 2021-01-15 00:00:00 2021-01-15 00:00:00 Telephone Hazelmayra [facility] [address] [id number] [facility] 2021-01-13 00:00:00 2021-01-13 00:00:00 Telephone Lab, [facility] [address] [id number] [facility] 2021-01-12 11:13:13 2021-01-12 11:33:13 [facility] [id number] [facility] 2021-01-12 11:20:00 2021-01-12 11:20:00 [facility] [id number] [facility]
--- NOTE | 2024-10-10 15:16 | RAD REPORT ---
EXAMINATION: CT LUMBAR SPINE WITHOUT CONTRAST CLINICAL INDICATION: Female, 79 years old. PAIN TECHNIQUE: Axial CT images were obtained through the lumbar spine in soft tissue and bone windows wit hout intravenous contrast. Coronal and Sagittal reformatted images were created from the data set. One or more of the following dose reduction techniques were used: Automated exposure control, adjustm ent of the mA and/ or kV according to patient size, and/or iterative reconstruction. Unless otherwise specified, incidental findings do not require dedicated imaging follow-up. [id number]. COMPARISON: No prior exam. FINDINGS: For purposes of this dictation, it is assumed that there are 5 non rib-bearing lumbar type vertebrae, and the most caudal fully segmented lumbar vertebra is labeled L5. ALIGNMENT: Grade 1 anterolisthesis of L4 and L5. BONES: Superior endplate fracture at L2 which is likely acute. Minimal anterior height loss. DISCS: Disc height loss at multiple levels including at L3-4 and L4-5. LEVELS: Broad-based disc bulges are present at several levels including at L4-5 with there is facet a nd ligament flavum hypertrophy the likely contributes to moderate central spinal stenosis. Mild central spinal stenosis is present at L3-4. SOFT TISSUE: 1.8 cm left adrenal nodule with Hounsfield units less than 0 consistent with an adenoma. No follow-up is required. Atherosclerosis without aneurysm. IMPRESSION: Acute L2 compression fracture with less than 20% loss of height. No bony retropulsion. Multilevel deg enerative disc disease most notably at L4-5 where a combination of factors including anterolisthesis contributes to moderate central spinal stenosis.
--- NOTE | 2024-10-10 15:50 | EDPHYS ---
Physician Documentation [facility] Name: Suzanne Sneed Age: 79 yrs Sex: Female : 1945 Arrival Date: 10/10/2024 Time: 12:58 Bed 10 Private MD: ED Physician Charly Bosch HPI: 10/10 14:24 This 79 yrs old Female presents to ER via Ambulatory with complaints of Low rn Back Pain. 14:24 The patient presents with pain that is acute. The symptoms are located in the low back. rn The pain radiates to the right leg. Onset: The symptoms/episode began/occurred 5 day(s) ago. Modifying factors: The patient symptoms are alleviated by nothing, the patient symptoms are aggravated by any movement. Associated signs and symptoms: Pertinent positives: none Pertinent negatives: abdominal pain, dysuria, fever, numbness, tingling, urinary retention. Severity of symptoms: At their worst the symptoms were mild, in the emergency department the symptoms are unchanged. The patient has not experienced similar symptoms in the past. Patient reports right lower back pain that began 5 days ago. Denies injury or trauma. Reports has had bad left knee and now bad right knee for the last few months. Reports pain in right lower back that radiates to the top of the right posterior thigh. No swelling or weakness. No bowel or bladder issues.. Historical: - Allergies: 13:57 Sulfa (Sulfonamide Antibiotics); NAUSEA; tm6 - PMHx: 13:57 Anxiety; Hypertension; Panic Attacks; Vertigo; tm6 - PSHx: 13:57 None; tm6 - Immunization history:: Flu vaccine is not up to date. - Infectious Disease History:: Denies. - Social history:: Smoking status: Patient denies any tobacco usage or history of. - Family history:: not pertinent. - Hospitalizations: : No recent hospitalization is reported. ROS: 14:24 Constitutional: Negative for fever, chills, and weight loss, Cardiovascular: Negative rn for chest pain, palpitations, and edema, Respiratory: Negative for shortness of breath, cough, wheezing, and pleuritic chest pain, Abdomen/GI: Negative for abdominal pain, nausea, vomiting, diarrhea, and constipation, Back: Positive for back pain : Negative for injury, bleeding, discharge, and swelling, MS/Extremity: Negative for injury and deformity, Skin: Negative for injury, rash, and discoloration, Neuro: Negative for headache, weakness, numbness, tingling, and seizure, Exam: 14:24 Constitutional: This is a well developed, well nourished patient who is awake, alert, rn and in no acute distress. Cardiovascular: Regular rate and rhythm. No pulse deficits. Respiratory: No increased work of breathing, no retractions or nasal flaring. Abdomen/GI: Soft, non-tender Back: No spinal tenderness. No costovertebral tenderness. Full range of motion. MS/ Extremity: Pulses equal, no cyanosis. Neurovascular intact. Full, normal range of motion. Equal circumference. Neuro: Awake and alert, GCS 15 Vital Signs: 13:56 BP 149 / 68; Pulse 72; Resp 17; Temp 97.5(TE); Pulse Ox 97% on R/A; MAP 92 mmHg; Weight tm6 97.07 kg; Height 5 ft. 3 in. ; Pain 8/10; 16:02 BP 155 / 71; Pulse 72; Resp 16; Temp 98.4(O); Pulse Ox 100% on R/A; Pain 4/10; le1 13:56 Body Mass Index 37.91 (97.07 kg, 160.02 cm) tm6 13:56 Pain Scale: Adult tm6 16:02 Pain Scale: Adult le1 MDM: 13:15 Medical Screening Exam initiated rn 15:49 Differential diagnosis: arthritis, sciatica, Herniated disc. Data reviewed: vital rn signs, nurses notes, radiologic studies, CT scan, and as a result, I will discharge patient. Counseling: I had a detailed discussion with the patient and/or guardian regarding the historical points, exam findings, and any diagnostic results supporting the discharge/admit diagnosis, radiology results, the need for outpatient follow up, to return to the emergency department if symptoms worsen or persist or if there are any questions or concerns that arise at home. Special discussion: I discussed with the patient/guardian in detail that at this point there is no indication for admission to the hospital. It is understood, however, that if the symptoms persist or worsen the patient needs to return immediately for re-evaluation. Based on the history and exam findings, there is no indication for further emergent testing or inpatient evaluation. I discussed with the patient/guardian the need to see the back specialist for further evaluation of the symptoms. I discussed with the patient/guardian the need to see the primary care provider for further evaluation of the symptoms. 10/10 13:34 Order name: CT Lumbar Spine Wo Con; Complete Time: 15:41 rn Administered Medications: No medications were administered Disposition Summary: 10/10/24 15:50 Discharge Ordered Notes: Location: Home rn Problem: new rn Symptoms: have improved rn Condition: Stable rn Diagnosis - Low back pain rn - Other intervertebral disc degeneration, lumbar region rn - Radiculopathy, lumbosacral region rn Followup: rn - With: Private Physician - When: As needed - Reason: Recheck today's complaints, Re-evaluation by your physician Discharge Instructions: - Discharge Summary Sheet rn - Acute Back Pain, Adult rn - Lumbosacral Radiculopathy rn - Back Exercises rn Forms: - Medication Reconciliation Form rn - 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 [facility]
--- NOTE | 2024-10-10 15:50 | ER ---
Nurse's Notes [facility] Name: Suzanne Sneed Age: 79 yrs Sex: Female : 1945 Arrival Date: 10/10/2024 Time: 12:58 Bed 10 Private MD: Diagnosis: Low back pain;Other intervertebral disc degeneration, lumbar region;Radiculopathy, lumbosacral region Presentation: 10/10 13:56 Chief complaint: Patient states: low back pain x2 days, no known injury. Coronavirus tm6 screen: Client denies travel out of the [place] in the last 14 days. Ebola Screen: Patient negative for fever greater than or equal to 101.5 degrees Fahrenheit, and additional compatible Ebola Virus Disease symptoms Patient denies exposure to infectious person. Patient denies travel to an Ebola-affected area in the 21 days before illness onset. No symptoms or risks identified at this time. Initial Sepsis Screen: Does the patient meet any 2 criteria? No. Patient's initial sepsis screen is negative. Does the patient have a suspected source of infection? No. Patient's initial sepsis screen is negative. Risk Assessment: Do you want to hurt yourself or someone else? Patient reports no desire to harm self or others. Onset of symptoms was October 08, 2024. 13:56 Method Of Arrival: Ambulatory tm6 13:56 Acuity: DREAD 4 tm6 Triage Assessment: 13:57 General: Appears uncomfortable, Behavior is cooperative. Pain: Complains of pain in tm6 back Pain currently is 8 out of 10 on a pain scale. EENT: No signs and/or symptoms were reported regarding the EENT system. Neuro: Level of Consciousness is awake, alert, obeys commands, Oriented to person, place, time, situation. Cardiovascular: Patient's skin is warm and dry. Respiratory: Airway is patent Respiratory effort is even, unlabored, Respiratory pattern is regular, symmetrical. GI: No signs and/or symptoms were reported involving the gastrointestinal system. Abdomen is round non-distended. : No signs and/or symptoms were reported regarding the genitourinary system. Derm: No signs and/or symptoms reported regarding the dermatologic system. Musculoskeletal: Reports pain in back Pain is 8 out of 10 on a pain scale. Historical: - Allergies: 13:57 Sulfa (Sulfonamide Antibiotics); NAUSEA; tm6 - PMHx: 13:57 Anxiety; Hypertension; Panic Attacks; Vertigo; tm6 - PSHx: 13:57 None; tm6 - Immunization history:: Flu vaccine is not up to date. - Infectious Disease History:: Denies. - Social history:: Smoking status: Patient denies any tobacco usage or history of. - Family history:: not pertinent. - Hospitalizations: : No recent hospitalization is reported. Screenin:13 [facility] ED Fall Risk Assessment (Adult) History of falling in the last 3 months, le1 including since admission No falls in past 3 months (0 pts) Confusion or Disorientation No (0 pts) Intoxicated or Sedated No (0 pts) Impaired Gait No (0 pts) Mobility Assist Device Used No (0 pt) Altered Elimination No (0 pt) Score/Fall Risk Level 0 - 2 = Low Risk Oriented to surroundings, Maintained a safe environment, Educated pt \T\ family on fall prevention, incl call for assistance when getting out of bed, Assessed \T\ reinforced patient's understanding of fall precautions, Hourly rounding (assess needs \T\ fall precautionary measures) done. Abuse screen: Denies threats or abuse. Denies injuries from another. Nutritional screening: No deficits noted. Tuberculosis screening: No symptoms or risk factors identified. Assessment: 14:12 General: Appears in no apparent distress. uncomfortable, Behavior is calm, cooperative. le1 Pain: Complains of pain in back Pain currently is 8 out of 10 on a pain scale. Neuro: No deficits noted. Cardiovascular: No deficits noted. Respiratory: No deficits noted. GI: No deficits noted. : No deficits noted. EENT: No deficits noted. Musculoskeletal: No deficits noted. Vital Signs: 13:56 BP 149 / 68; Pulse 72; Resp 17; Temp 97.5(TE); Pulse Ox 97% on R/A; MAP 92 mmHg; Weight tm6 97.07 kg; Height 5 ft. 3 in. ; Pain 8/10; 16:02 BP 155 / 71; Pulse 72; Resp 16; Temp 98.4(O); Pulse Ox 100% on R/A; Pain 4/10; le1 13:56 Body Mass Index 37.91 (97.07 kg, 160.02 cm) tm6 13:56 Pain Scale: Adult tm6 16:02 Pain Scale: Adult le1 ED Course: 13:02 Patient arrived in ED. im 13:15 Charly Bosch MD is Attending Physician. rn 13:57 Triage completed. tm6 13:57 Arm band placed on right wrist. tm6 14:04 Minerva Gilbert, RN is Primary Nurse. le1 14:13 Patient has correct armband on for positive identification. Bed in low position. Call le1 light in reach. Patient sitting in chair due to back pain. Informed her to press call button when wanting to change position. Provided Education on: Informed patient to use call light if needing assistance.. 15:03 CT Lumbar Spine Wo Con In Process Unspecified. EDMS 16:03 No provider procedures requiring assistance completed. Patient did not have IV access le1 during this emergency room visit. Administered Medications: No medications were administered Medication: 16:03 VIS not applicable for this client. le1 Outcome: 15:50 Discharge ordered by MD. rn 16:03 Discharged to home ambulatory, le1 16:03 Condition: stable 16:03 Discharge instructions given to patient, Instructed on discharge instructions, follow up and referral plans. medication usage, Demonstrated understanding of instructions, follow-up care, medications, Prescriptions given X 1, 16:04 Patient left the ED. le1 Signatures: Dispatcher [employer] EDMS Charly Bosch MD MD rn Mendoza, Itzel im Masterson, Tawney RN RN 6 Minerva Gilbert, RN RN le1
[2024-10-10 16:29] VITALS: BP 155/71; TEMP 98.4; O2SAT 100
== END 2024-10-10 16:04 | disposition home or self-care (01) ==
LOC: ER 12:58
DX: M51.369 Other intervertebral disc degeneration, lumbar region without mention of lumbar back pain or lower extremity pain (principal); M54.17 Radiculopathy, lumbosacral region
CPT/HCPCS: 72131; 99283